=== PATIENT | female | born 1985 | race Caucasian/White ===

== ENCOUNTER 2019-10-27 15:25 | Emergency (ER) | payer BC, OTHER, SELFPAY ==
[2019-10-27] MEDS ORDERED: Ibuprofen 200 MG TAB ONE (16:31)
--- NOTE | 2019-10-27 17:30 | RAD ---
EXAM: CHEST TWO VIEWS: History: Injury from trauma. FINDINGS: Heart size is within normal limits. The lungs are clear. No pneumothorax or pleural effusion. IMPRESSION: No significant acute intrathoracic disease. POS: [facility]
--- NOTE | 2019-10-27 17:41 | RAD ---
EXAM: LUMBAR SPINE THREE VIEWS: History: Injury from trauma FINDINGS: No fracture, dislocation, or significant malalignment. Very minute spondylosis. IMPRESSION: Unremarkable lumbar spine. POS: [facility]
== END 2019-10-27 17:35 | disposition home or self-care (01) ==
LOC: ERS 15:25
DX: S39.012A Strain of muscle, fascia and tendon of lower back, initial encounter (principal); S20.212A Contusion of left front wall of thorax, initial encounter; F41.9 Anxiety disorder, unspecified; F32.9 Major depressive disorder, single episode, unspecified; Z79.899 Other long term (current) drug therapy; V67.5XXA Driver of heavy transport vehicle injured in collision with fixed or stationary object in traffic accident, initial encounter
CPT/HCPCS: 71046; 72100

== ENCOUNTER 2021-11-15 16:16 | Observation (INO) | payer BC, OTHER, SELFPAY ==
[2021-11-15] MEDS ORDERED: Tranexamic Acid 1,000 MG/10 ML VIAL ONE (17:55)
[2021-11-15] MEDS ORDERED: diphenhydrAMINE 50 MG/ML VIAL ONE (17:57)
[2021-11-15] MEDS ORDERED: EPINEPHrine 1 MG/ML VIAL ONE (17:57)
[2021-11-15] MEDS ORDERED: Dexamethasone 10 MG/ML VIAL ONE (17:57)
[2021-11-15 18:08] LABS: #Basophils 0.1 thou/uL (0.0-0.2); #Eosinphils 0.1 thou/uL (0.0-0.7); #Lymphocytes 1.7 thou/uL (1.20-3.40); #Monocytes 0.4 thou/uL (0.11-0.59); #Neutrophils 3.1 thou/uL (1.40-6.50); %Eosinophils 2.5 % (0.0-10.0); %Lymphocytes 32.1 % (21.0-51.0); %Monocytes 7.6 % (0.0-10.0); %Neutrophils 56.9 % (42.0-75.0); Hemoglobin 13.1 g/dL (12.0-16.0); Mean Corpuscular HGB CONC 32.3 g/dL (32.0-36.0); Mean Corpuscular Hemoglobin 29.7 pg (27.0-31.0); Mean Corpuscular Volume 91.8 fL (78.0-98.0); Platelet Count 206 thou/uL (130-400); RBC Distribution Width 12.4 % (11.5-14.5); White Blood Cell (WBC) Count 5.4 thou/uL (4.8-10.8)
[2021-11-15] MEDS ORDERED: Famotidine 40 MG/4 ML VIAL SLOW IVP SCH (18:15)
[2021-11-15 18:29] LABS: ALT (SGPT) 57 U/L (8-55); AST (SGOT) 28 U/L (5-34); Albumin 3.9 g/dL (3.5-5.0); Alkaline Phosphatase 162 U/L (40-110); Anion Gap 13 mmol/L (10-20); BUN (Urea Nitrogen) 15 mg/dL (7.0-18.7); Bilirubin, Total 0.4 mg/dL (0.2-1.2); CK (CPK) 76 U/L (29-168); Calc. Creatinine Clearance 0 mL/min (70-130); Calcium 9.3 mg/dL (7.8-10.44); Carbon Dioxide 25 mmol/L (22-29); Chloride 103 mmol/L (98-107); Globulin 3.4 g/dL (2.4-3.5); Glucose 84 mg/dL (70-105); Potassium 4.2 mmol/L (3.5-5.1); Protein, Total 7.3 g/dL (6.0-8.3); Sodium 137 mmol/L (136-145)
[2021-11-15] MEDS ORDERED: Dextrose 5 %-0.45 % NaCl 1,000 ML IV SCH (22:45)
[2021-11-15] MEDS ORDERED: Acetaminophen 500 MG TAB PO PRN (22:53)
[2021-11-15] MEDS ORDERED: Ondansetron ODT 4 MG TAB PO PRN (22:53)
[2021-11-15] MEDS ORDERED: Ondansetron PF 4 MG/2 ML Vial IVP PRN (22:53)
[2021-11-15] MEDS ORDERED: hydrALAZINE 20 MG/ML VIAL SLOW IVP PRN (22:53)
[2021-11-15] MEDS ORDERED: predniSONE 20 MG TAB PO SCH (23:00)
[2021-11-15] MEDS: diphenhydrAMINE 25 MG CAP PO SCH (23:54)
[2021-11-16 04:56] VITALS: BMI 37.0
[2021-11-16 06:12] LABS: #Lymphocytes 0.9 thou/uL (1.20-3.40); #Monocytes 0.1 thou/uL (0.11-0.59); #Neutrophils 3.3 thou/uL (1.40-6.50); %Eosinophils 0.3 % (0.0-10.0); %Lymphocytes 20.2 % (21.0-51.0); %Monocytes 1.6 % (0.0-10.0); %Neutrophils 77.9 % (42.0-75.0); Hemoglobin 13.1 g/dL (12.0-16.0); Mean Corpuscular HGB CONC 32.4 g/dL (32.0-36.0); Mean Corpuscular Hemoglobin 29.7 pg (27.0-31.0); Mean Corpuscular Volume 91.7 fL (78.0-98.0); Mean Platelet Volume 8.1 fL (7.4-10.4); Platelet Count 216 thou/uL (130-400); RBC Distribution Width 12.4 % (11.5-14.5); Red Blood Cell (RBC) Count 4.42 mill/uL (4.20-5.40); White Blood Cell (WBC) Count 4.2 thou/uL (4.8-10.8)
[2021-11-16] MEDS: diphenhydrAMINE 25 MG CAP PO SCH ×2 (06:14→11:44)
[2021-11-16 06:47] LABS: Anion Gap 13 mmol/L (10-20); BUN (Urea Nitrogen) 12 mg/dL (7.0-18.7); Calc. Creatinine Clearance 216 mL/min (70-130); Calcium 9.7 mg/dL (7.8-10.44); Carbon Dioxide 22 mmol/L (22-29); Chloride 104 mmol/L (98-107); Glucose 138 mg/dL (70-105); Sodium 135 mmol/L (136-145)
[2021-11-16] MEDS ORDERED: predniSONE 20 MG TAB PO SCH (08:00)
[2021-11-16] MEDS ORDERED: Famotidine 20 MG TAB PO SCH (09:00)
[2021-11-16] MEDS ORDERED: Thyroid 30 MG TAB PO SCH (09:00)
[2021-11-16 11:43] VITALS: BP 124/77; TEMP 98.4
== END 2021-11-16 14:31 | disposition home or self-care (01) ==
LOC: ERS 16:16 → T4-A 20:36 → INTOOBSV 20:36
PROVIDERS: ADMIT Hospitalist; ATTEND Hospitalist
DX: T78.3XXA Angioneurotic edema, initial encounter (principal); T46.4X5A Adverse effect of angiotensin-converting-enzyme inhibitors, initial encounter; I10 Essential (primary) hypertension; Z79.890 Hormone replacement therapy; Z79.899 Other long term (current) drug therapy; Z88.0 Allergy status to penicillin; Z88.5 Allergy status to narcotic agent
CPT/HCPCS: 36415; 36430; 80048; 80053; 82550; 85025; 86850; 86900; 86901; 96365; 96372; 96375; G0378; J0171; J1100; J1200; J7512; P9059

== ENCOUNTER 2022-05-29 22:49 | Emergency (ER) | payer OTHER ==
[2022-05-30] LABS: #Eosinphils 0.2 thou/uL (0.0-0.7); #Lymphocytes 2.3 thou/uL (1.20-3.40); #Monocytes 0.4 thou/uL (0.11-0.59); #Neutrophils 2.9 thou/uL (1.40-6.50); %Basophils 0.6 % (0.0-1.0); %Eosinophils 3.4 % (0.0-10.0); %Lymphocytes 39.3 % (21.0-51.0); %Monocytes 7.4 % (0.0-10.0); %Neutrophils 49.4 % (42.0-75.0); Hemoglobin 11.6 g/dL (12.0-16.0); Mean Corpuscular HGB CONC 29.3 g/dL (32.0-36.0); Mean Corpuscular Hemoglobin 25.8 pg (27.0-31.0); Mean Corpuscular Volume 88.2 fl (78.0-98.0); Mean Platelet Volume 8.2 fL (7.4-10.4); Platelet Count 277 10x3/uL (130-400); RBC Distribution Width 12.5 % (11.5-14.5); White Blood Cell (WBC) Count 5.8 10x3/uL (4.8-10.8)
[2022-05-30 00:07] LABS: BHCG - Serum Negative (NEGATIVE); Pregs Control Background? CLEAR/WHITE (CLR/WHITE); Pregs Control Bar Appear? YES (CONTROL BAR)
[2022-05-30 00:19] LABS: ALT (SGPT) 43 U/L (8-55); AST (SGOT) 30 U/L (5-34); Albumin 4.1 g/dL (3.5-5.0); Alkaline Phosphatase 151 U/L (40-110); Anion Gap 14 mmol/L (10-20); BUN (Urea Nitrogen) 17 mg/dL (7.0-18.7); Bilirubin, Total 0.3 mg/dL (0.2-1.2); Calc. Creatinine Clearance 0 mL/min (70-130); Calcium 9.6 mg/dL (7.8-10.44); Carbon Dioxide 27 mmol/L (22-29); Chloride 101 mmol/L (98-107); Estimated GFR 115; Globulin 3.3 g/dL (2.4-3.5); Glucose 96 mg/dL (70-105); Lipase 23 U/L (8-78); Potassium 4.5 mmol/L (3.5-5.1); Protein, Total 7.4 g/dL (6.0-8.3); Sodium 137 mmol/L (136-145)
== END 2022-05-30 01:39 | disposition home or self-care (01) ==
LOC: ERS 22:49
DX: R42 Dizziness and giddiness (principal); R53.83 Other fatigue; I10 Essential (primary) hypertension
CPT/HCPCS: 80053; 83690; 84484; 84703; 85025; 93005